=== PATIENT | female | born 2000 | race Caucasian/White ===

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

== ENCOUNTER → 2019-10-17 | Outpatient (CLI) | payer OTHER | END | disposition home or self-care (01) | LOC: RAD 11:46 | PROVIDERS: ATTEND Family Medicine | DX: R05 Cough (principal) | CPT/HCPCS: 71046 ==

== ENCOUNTER 2019-10-22 11:15 | Emergency (ER) | payer OTHER ==
[~2019-10-22] VITALS: Ht 165.1 cm; Wt 53.6 kg
[2019-10-22] MEDS ORDERED: ONDANSETRON ODT 4 MG PO PRN (11:30)
[2019-10-22] MEDS ORDERED: ONDANSETRON ODT 4 MG ONE (11:51)
[2019-10-22 11:55] VITALS: BP 123/79
[2019-10-22] MEDS ORDERED: PROMETHAZINE/COD. 10MG/6.25MG/5 ML ORAL SOL PO PRN (12:00)
--- NOTE | 2019-10-22 12:49 | NUR ---
break rn note: still waiting for flu results then pt will be dc'd per md
[2019-10-22 13:16] LABS: RAPID INFLUENZA A Negative (Negative); RAPID INFLUENZA B Negative (Negative)
== END 2019-10-22 13:48 | disposition home or self-care (01) ==
LOC: ED 13:37
DX: B34.9 Viral infection, unspecified (principal); Z20.828 Contact with and (suspected) exposure to other viral communicable diseases
CPT/HCPCS: 71045; 87081; 87400; 87486; 87581; 87633; 87798; 87880; 99284